=== PATIENT | female | born 1975 | race African-American/Black ===

== ENCOUNTER 2019-06-15 | Emergency (ER) | payer OTHER ==
[~2019-06-15] MED LIST: NO HOME MEDS
[2019-06-15 08:33] LABS: URINE BILIRUBIN - DIPSTICK NEGATIVE (NEGATIVE); URINE BLOOD DIPSTICK MODERATE (NEGATIVE); URINE COLOR YELLOW; URINE GLUCOSE - DIPSTICK NEGATIVE (NEGATIVE); URINE KETONE NEGATIVE (NEGATIVE); URINE LEUK ESTERASE NEGATIVE (NEGATIVE); URINE NITRITE - DIPSTICK NEGATIVE (Negative); URINE PROTEIN - DIPSTICK TRACE mg/dL (NEG-TRACE); URINE SPECIFIC GRAVITY 1.025
[2019-06-15 08:43] LABS: URINE RBC 0-2 RBC/hpf (0-5)
[2019-06-15 08:45] LABS: URINE SQUAMOUS EPITHELIAL CELL FEW EPI/hpf (0-FEW)
[2019-06-15] MEDS ORDERED: NAPROXEN500 MG PO (09:03)
[2019-06-15] MEDS ORDERED: FLEXERIL PO (09:03)
== END 2019-06-15 09:32 | disposition home or self-care (01) | DRG 552 ==
PROVIDERS: Emergency Medicine
DX: S13.9XXA Sprain of joints and ligaments of unspecified parts of neck, initial encounter (principal); V57.5XXA Driver of pick-up truck or van injured in collision with fixed or stationary object in traffic accident, initial encounter

== ENCOUNTER 2019-06-19 | Emergency (ER) | payer OTHER ==
[~2019-06-19] MED LIST changes: +FLEXERIL PO; +NAPROXEN500 MG PO
== END 2019-06-19 14:29 | disposition home or self-care (01) | DRG 552 ==
DX: M54.5 Low back pain (principal); V89.2XXA Person injured in unspecified motor-vehicle accident, traffic, initial encounter